=== PATIENT | female | born 1960 | race Caucasian/White ===

== ENCOUNTER 2024-08-28 11:36 | Observation (INO) ==
--- NOTE | 2024-08-28 12:24 | ED.ABDFE ---
HPI Time Seen Time Seen by Provider: 08/28/24 12:23 PCP Primary Care Physician: Palmira Murphy Complaint Chief Complaint:: pt states that she has been having epigastric pain for about two weeks along with N/V. pt is unable to tolerate any po fluids at the time because it comes right back up Self Treatment fo Chief Complaint: tums Source History Provided: Patient Mode of arrival Mode of Arrival: Ambulatory Timing Onset of Chief Complaint: 08/21/24 PMH PMH Past Medical History: Yes Past Medical History: Anxiety, Arthritis, Depression, Dyslipidemia and Hypertension Past Surgical History: Yes Surgical History: Hysterectomy, Ortho Surgery and Tonsillectomy Past Surgical History Comment: hip surgery Family History History of Family Medical Conditions: Yes Family Medical History: Hypertension Social History Does patient currently use any type of tobacco product: Yes Have you used tobacco products in the last 12 months: Yes Type of Tobacco Use: Cigarettes Alcohol Use: None Do you use any recreational Drugs:: No Lives With: Family Lives Where: Home Infectious screening Have you traveled outside the country in the last 6 months?: No Isolation: Standard PE Vital Signs Vitals: Vital Signs Temperature 98.2 F Pulse Rate 73 Pulse Rate 79 Pulse Rate 75 Pulse Rate 75 Pulse Rate 83 Pulse Rate 105 Respiratory Rate 24 Respiratory Rate 20 Respiratory Rate 21 Respiratory Rate 25 Respiratory Rate 31 Respiratory Rate 18 Respiratory Rate 18 Blood Pressure 118/72 Blood Pressure 146/71 O2 Sat by Pulse Oximetry 93 ROR Labs Reviewed 08/28/24 12:47 08/28/24 12:47 Laboratory: WBC 20.4 X10^3/uL (3.6-10.0) H 08/28/24 12:47 RBC 4.91 X10^6/uL (3.5-5.4) 08/28/24 12:47 Hgb 14.3 g/dL (12.0-16.0) 08/28/24 12:47 Hct 42.5 % (36.0-47.0) 08/28/24 12:47 MCV 86.6 fL (80.0-100.0) 08/28/24 12:47 MCH 29.1 pg (27.0-34.0) 08/28/24 12:47 MCHC 33.6 g/dL (33.0-35.0) 08/28/24 12:47 RDW 14.1 % (11.6-16.5) 08/28/24 12:47 Plt Count 398 X10^3/uL (150.0-450.0) 08/28/24 12:47 Plt Count Comment Adequate (ADEQUATE) 08/28/24 12:47 MPV 7.2 fL (7.4-11.0) L 08/28/24 12:47 Neut % (Auto) 93.1 % (42.0-75.0) H 08/28/24 12:47 Lymph % (Auto) 2.9 % (21.0-51.0) L 08/28/24 12:47 [place] % (Auto) 3.6 % (0.0-13.0) 08/28/24 12:47 Eos % (Auto) 0.0 % (0.9-2.9) L 08/28/24 12:47 Baso % (Auto) 0.4 % (0.2-1.0) 08/28/24 12:47 Neut # (Auto) 19.0 x10^3/uL (2.2-4.8) H 08/28/24 12:47 Lymph # (Auto) 0.6 X10^3/uL (1.3-2.9) L 08/28/24 12:47 [place] # (Auto) 0.7 x10^3/uL (0.3-0.8) 08/28/24 12:47 Eos # (Auto) 0.0 x10^3/uL (0.0-0.2) 08/28/24 12:47 Baso # (Auto) 0.1 X10^3/uL (0.0-0.1) 08/28/24 12:47 Absolute Nucleated RBC 0.0 /100WBC 08/28/24 12:47 Total Counted 100 08/28/24 12:47 Neutrophils % (Manual) 82 % (39-76) H 08/28/24 12:47 Band Neutrophils % 10 % (0-10) 08/28/24 12:47 Lymphocytes % (Manual) 6 % (13-43) L 08/28/24 12:47 Monocytes % (Manual) 2 % (4-9) L 08/28/24 12:47 Plt Morphology Comment Normal (NORMAL) 08/28/24 12:47 RBC Morphology Normal (NORMAL) 08/28/24 12:47 Sodium 133 mmol/L (136-145) L 08/28/24 12:47 Corrected Sodium 134 mmol/L (136-145) L 08/28/24 12:47 Potassium 4.4 mmol/L (3.5-5.1) 08/28/24 12:47 Chloride 96 mmol/L (98-107) L 08/28/24 12:47 Carbon Dioxide 28.0 mmol/L (21-32) 08/28/24 12:47 BUN 20 mg/dL (7-18) H 08/28/24 12:47 Creatinine 1.64 mg/dL (0.55-1.02) H 08/28/24 12:47 Est GFR (MDRD) Af Amer 40 (>60) L 08/28/24 12:47 Est GFR (MDRD) Non-Af 33 (>60) L 08/28/24 12:47 Glucose 123 mg/dL (65-99) H 08/28/24 12:47 Calcium 9.4 mg/dL (8.5-10.1) 08/28/24 12:47 Corrected Calcium 10.0 mg/dL (8.5-10.1) 08/28/24 12:47 Total Bilirubin 4.70 mg/dL (0.2-1.0) H 08/28/24 12:47 AST 391 Units/L (15-37) H 08/28/24 12:47 ALT 321 Units/L (12-78) H 08/28/24 12:47 Alkaline Phosphatase 234 Units/L (46-116) H 08/28/24 12:47 Total Protein 7.5 g/dL (6.4-8.2) 08/28/24 12:47 Albumin 3.3 g/dL (3.4-5.0) L 08/28/24 12:47 Globulin 4.2 g/dL (2.5-4.5) 08/28/24 12:47 Albumin/Globulin Ratio 0.8 Ratio (1.1-2.1) L 08/28/24 12:47 Amylase 444 Units/L (25-115) H 08/28/24 12:47 Lipase 673 Units/L (16-77) H 08/28/24 12:47 Specimen Type Clean catch urine 08/28/24 12:56 Urine Color [place] (YELLOW) 08/28/24 12:56 Urine Appearance Hazy (CLEAR) 08/28/24 12:56 Urine pH 6.0 (5.0 - 8.0) 08/28/24 12:56 Ur Specific [place] 1.015 (1.000-1.030) 08/28/24 12:56 Urine Protein 2+ (NEGATIVE) 08/28/24 12:56 Urine Glucose (UA) Negative (NEGATIVE) 08/28/24 12:56 Urine Ketones Negative (NEGATIVE) 08/28/24 12:56 Urine Blood 2+ (NEGATIVE) 08/28/24 12:56 Urine Nitrite Negative (NEGATIVE) 08/28/24 12:56 Urine Bilirubin 2+ (NEGATIVE) 08/28/24 12:56 Urine Urobilinogen 3+ (NORMAL) 08/28/24 12:56 Ur Leukocyte Esterase 1+ (NEGATIVE) 08/28/24 12:56 Urine RBC 3-5 /HPF (0-3) A 08/28/24 12:56 Urine WBC 0-2 /HPF (0-5) 08/28/24 12:56 Ur Squamous Epith Cells Rare /HPF (NEGATIVE) 08/28/24 12:56 Urine Bacteria Trace /HPF (NEGATIVE) 08/28/24 12:56 Urine Mucus Rare /HPF (NEGATIVE) 08/28/24 12:56 Ur Culture Indicated? No/not indicated 08/28/24 12:56 Opioid Opioid Risk Tool Total: 0 Total Score Risk Category: Low Risk Copyright: Zachary OLCKE predicting aberrant behaviors Discharge Plan Diagnosis Discharge Problem: Acute pancreatitis, Abdominal pain, Leucocytosis, Gall stone, Dehydration, Nausea & vomiting, Weakness Discharge Plan Patient Disposition: 09 ADMITTED INPATIENT Condition: Stable Orders to Discharge Patient Discharge Orders: Transfer (Routine); Ordered 08/28/24 Ordered By: MISTY SARMIENTO
[2024-08-28] MEDS: ZOFRAN INJ 4 MG VIAL IVP ONE (12:48)
[2024-08-28] MEDS: DEMEROL INJ IVP ONE (12:49)
[2024-08-28] MEDS: NS 1,000 ML IV 1,000 ML IV SCH ×2 (12:52→22:40)
[2024-08-28 12:53] LABS: BASOPHILS # (AUTO) 0.1 X10^3/uL (0.0-0.1); BASOPHILS % (AUTO) 0.4 % (0.2-1.0); HEMATOCRIT 42.5 % (36.0-47.0); HEMOGLOBIN 14.3 g/dL (12.0-16.0); LYMPHOCYTES # (AUTO) 0.6 X10^3/uL (1.3-2.9); LYMPHOCYTES % (AUTO) 2.9 % (21.0-51.0); MEAN CORPUSCULAR HEMOGLOBIN 29.1 pg (27.0-34.0); MEAN CORPUSCULAR HGB CONC 33.6 g/dL (33.0-35.0); MEAN CORPUSCULAR VOLUME 86.6 fL (80.0-100.0); MEAN PLATELET VOLUME 7.2 fL (7.4-11.0); MONOCYTES # (AUTO) 0.7 x10^3/uL (0.3-0.8); MONOCYTES % (AUTO) 3.6 % (0.0-13.0); NEUTROPHILS % (AUTO) 93.1 % (42.0-75.0); PLATELET COUNT 398 X10^3/uL (150.0-450.0); RED BLOOD COUNT 4.91 X10^6/uL (3.5-5.4); RED CELL DISTRIBUTION WIDTH 14.1 % (11.6-16.5); WHITE BLOOD COUNT 20.4 X10^3/uL (3.6-10.0)
--- NOTE | 2024-08-28 13:09 | CT ---
EXAMINATION:ABDOMEN/PELVIS W/O CONHISTORY:ABDOMINAL PAIN; .COMPARISON:None.TECHNIQUE:Unenhanced axial images were obtained through the abdomen and pelvis using renal stone protocol. Reformatted images were obtained as well. Lack of oral and IV contrast limits diagnostic sensitivityThe above CT scan was done with automated exposure control and the mA and kV was adjusted to obtain quality images according to patient size.FINDINGS:Lung bases: No acute findings. Dependent atelectasis. Elevated left hemidiaphragmLiver: No acute findings.GB/Biliary: Gallstones. No wall thickening or dilated ductSpleen: Normal size and densityPancreas: There is minimal stranding along the head of the pancreas which may represent early acute pancreatitis. Body and tail unremarkable. Correlate with amylase and lipase. No pseudocyst or dilated ductAdrenal Glands: No massKidneys: No obstructing stone, hydronephrosis or solid lesion. Punctate nonobstructing stones within the left kidneyAbdominal aorta: Tapers normally. Atherosclerotic calcificationRetroperitoneum: No pathologically enlarged lymph nodesBowel: No thickened or dilated loops of bowel, free fluid, free air, pneumatosis or abscess. Moderate stool. Simple diverticula. No CT evidence for diverticulitis, appendicitis or obstruction. Duodenal diverticulum in descending duodenumBladder/: Ureters and bladder unremarkable. There is streak artifact from right hip replacement. Hysterectomy. Multiple phleboliths in the pelvis.Osseous: Degenerative changes in the thoracolumbar spine. Multiple Schmorl's nodules. No acute findings or bony lesions.IMPRESSION:Stranding along the head of the pancreas may represent early acute pancreatitis. Correlate with amylase and lipaseSmall gallstones versus sludge in the gallbladder. No CT evidence for cholecystitis.No CT evidence for appendicitis, diverticulitis or obstructionTHIS IS AN ELECTRONICALLY VERIFIED FINAL REPORT08/28/2024 1:05 PM - Electronically signed by Jaden Juares MD
[2024-08-28 13:17] LABS: ALBUMIN 3.3 g/dL (3.4-5.0); CALCIUM 9.4 mg/dL (8.5-10.1); CREATININE 1.64 mg/dL (0.55-1.02); POTASSIUM 4.4 mmol/L (3.5-5.1)
[2024-08-28 13:24] LABS: BILIRUBIN,URINE 2+ (NEGATIVE); BLOOD/HEMOGLOBIN,URINE 2+ (NEGATIVE); GLUCOSE, URINE NEGATIVE (NEGATIVE); KETONES,URINE NEGATIVE (NEGATIVE); LEUKOCYTE ESTERASE ,URINE 1+ (NEGATIVE); NITRITES,URINE NEGATIVE (NEGATIVE); PROTEIN,URINE 2+ (NEGATIVE); UROBILINOGEN,URINE 3+ (NORMAL)
[2024-08-28 13:24] LABS: BAND NEUTROPHILS % 10 % (0-10)
[2024-08-28 13:25] LABS: PLATELET MORPHOLOGY COMMENT NORMAL (NORMAL)
[2024-08-28 13:47] LABS: APPEARANCE,URINE HAZY (CLEAR); BACTERIA,URINE TRACE /HPF (NEGATIVE); COLOR,URINE ORANGE (YELLOW); SQUAMOUS EPITHELIAL CELL,UR RARE /HPF (NEGATIVE)
[2024-08-28 13:56] LABS: TOTAL PROTEIN 7.5 g/dL (6.4-8.2)
[2024-08-28] MEDS: PROTONIX INJ 40 MG VIAL IVP ONE (15:44)
[2024-08-28] MEDS ORDERED: ZOFRAN INJ 4 MG VIAL IVP PRN (16:33)
[2024-08-28] MEDS ORDERED: ROCEPHIN VIAL 1 GRAM 1 G in NS 100 ML IV 100 ML IV SCH (17:00)
[2024-08-28] MEDS ORDERED: NS 1,000 ML IV 1,000 ML IV SCH (17:00)
[2024-08-28] MEDS ORDERED: DEMEROL INJ IVP PRN (17:34)
[2024-08-28 18:01] VITALS: BMI 1866.0
[2024-08-28] MEDS: ROCEPHIN VIAL 1 GRAM 1 G in NS 100 ML IV 100 ML IV SCH (19:09)
[2024-08-29 05:25] LABS: BASOPHILS % (AUTO) 0.4 % (0.2-1.0); EOSINOPHILS # (AUTO) 0.1 x10^3/uL (0.0-0.2); EOSINOPHILS % (AUTO) 0.6 % (0.9-2.9); HEMATOCRIT 37.2 % (36.0-47.0); HEMOGLOBIN 12.6 g/dL (12.0-16.0); LYMPHOCYTES % (AUTO) 10.5 % (21.0-51.0); MEAN CORPUSCULAR HEMOGLOBIN 28.8 pg (27.0-34.0); MEAN CORPUSCULAR HGB CONC 33.8 g/dL (33.0-35.0); MEAN CORPUSCULAR VOLUME 85.2 fL (80.0-100.0); MEAN PLATELET VOLUME 7.6 fL (7.4-11.0); MONOCYTES # (AUTO) 0.6 x10^3/uL (0.3-0.8); MONOCYTES % (AUTO) 6.8 % (0.0-13.0); NEUTROPHILS # (AUTO) 7.7 x10^3/uL (2.2-4.8); NEUTROPHILS % (AUTO) 81.7 % (42.0-75.0); PLATELET COUNT 322 X10^3/uL (150.0-450.0); RED BLOOD COUNT 4.36 X10^6/uL (3.5-5.4)
[2024-08-29 05:42] LABS: ALANINE AMINOTRANSFERASE 195 Units/L (12-78); ALBUMIN 2.6 g/dL (3.4-5.0); ALKALINE PHOSPHATASE 180 Units/L (46-116); AMYLASE 259 Units/L (25-115); ASPARTATE AMINO TRANSFERASE 154 Units/L (15-37); BLOOD UREA NITROGEN 23 mg/dL (7-18); CALCIUM 8.8 mg/dL (8.5-10.1); CARBON DIOXIDE 26.8 mmol/L (21-32); CHLORIDE 101 mmol/L (98-107); COR CA(FOR HYPOALB) 9.9 mg/dL (8.5-10.1); CREATININE 1.33 mg/dL (0.55-1.02); GLUCOSE 72 mg/dL (65-99); POTASSIUM 4.1 mmol/L (3.5-5.1); SODIUM 136 mmol/L (136-145); TOTAL PROTEIN 6.3 g/dL (6.4-8.2); eGFR NON BLACK RACES 42 (>60)
[2024-08-29 06:01] LABS: LIPASE 424 Units/L (16-77)
[2024-08-29 06:17] LABS: WHITE BLOOD COUNT 9.5 X10^3/uL (3.6-10.0)
[2024-08-29] MEDS: PROTONIX INJ 40 MG VIAL IVP SCH (08:47)
--- NOTE | 2024-08-29 10:30 | DR.H&P ---
H&P History & Physical for Day of: H&P Date: 08/29/24 Chief Complaint Chief Complaint: N/V and abdominal pain History of Present Illness History of Present Illness: Ms Terry is a 64y/o female with a PMH of HTN, HLD and anxiety presented with N/V and worsening abdominal pain for the past 2 weeks. She states she was initially getting better and then started feeling worse again so came to the ER. Work up showed elevated LFTs, lipase and amylase. WBC and Creatinine was also elevated. CTAP showed acute pancreatitis and gallsto madelyn vs sludge. Patient was started on fluids, pain control and ant-emetics. She was kept NPO and admitted for further management. This morning, she is feeling better. Denies use of ETOH. Labs/imaging reviewed: -WBC 9.5 Hgb 12.6 K 4.1 BUN/Cr 23/1.33 AST/ALT 154/195 AP 180 Lipase 424 -Blood Cx x 1: positive Plan: Order gallbladder U/S to assess further. Continue hydration, pain control and anti-emetics. NPO for now. Start clears after imaging. Continue protonix. Replace electrolytes as per protocol. Continue IV Rocephin, follow pending cultures. Monitor AM labs/imaging. Past Medical History Past Medical History: Anxiety, Arthritis, Depression, Dyslipidemia and Hypertension Additional Medical History: Hx TIA Past Surgical History Surgical History: Hysterectomy and Tonsillectomy Additional Surgical History: (R)KEN Family History Family Medical History: Hypertension Social History Does patient currently use any type of tobacco product: Yes Have you used tobacco products in the last 12 months: Yes Type of Tobacco Use: Cigarettes Alcohol Use: None Drug Use: None Allergies Allergies Allergy/AdvReac Type Severity Reaction Status Date / Time No Known Drug Allergies Allergy Unknown Verified 08/28/24 11:41 Labs 08/29/24 04:56 08/29/24 04:56 Labs: 08/28/24 18:28 Blood Blood Culture - Preliminary Laboratory WBC 9.5 X10^3/uL (3.6-10.0) D 08/29/24 04:56 RBC 4.36 X10^6/uL (3.5-5.4) 08/29/24 04:56 Hgb 12.6 g/dL (12.0-16.0) 08/29/24 04:56 Hct 37.2 % (36.0-47.0) 08/29/24 04:56 MCV 85.2 fL (80.0-100.0) 08/29/24 04:56 MCH 28.8 pg (27.0-34.0) 08/29/24 04:56 MCHC 33.8 g/dL (33.0-35.0) 08/29/24 04:56 RDW 14.0 % (11.6-16.5) 08/29/24 04:56 Plt Count 322 X10^3/uL (150.0-450.0) 08/29/24 04:56 Plt Count Comment Adequate (ADEQUATE) 08/28/24 12:47 MPV 7.6 fL (7.4-11.0) 08/29/24 04:56 Neut % (Auto) 81.7 % (42.0-75.0) H 08/29/24 04:56 Lymph % (Auto) 10.5 % (21.0-51.0) L 08/29/24 04:56 [place] % (Auto) 6.8 % (0.0-13.0) 08/29/24 04:56 Eos % (Auto) 0.6 % (0.9-2.9) L 08/29/24 04:56 Baso % (Auto) 0.4 % (0.2-1.0) 08/29/24 04:56 Neut # (Auto) 7.7 x10^3/uL (2.2-4.8) H 08/29/24 04:56 Lymph # (Auto) 1.0 X10^3/uL (1.3-2.9) L 08/29/24 04:56 [place] # (Auto) 0.6 x10^3/uL (0.3-0.8) 08/29/24 04:56 Eos # (Auto) 0.1 x10^3/uL (0.0-0.2) 08/29/24 04:56 Baso # (Auto) 0.0 X10^3/uL (0.0-0.1) 08/29/24 04:56 Absolute Nucleated RBC 0.0 /100WBC 08/29/24 04:56 Total Counted 100 08/28/24 12:47 Neutrophils % (Manual) 82 % (39-76) H 08/28/24 12:47 Band Neutrophils % 10 % (0-10) 08/28/24 12:47 Lymphocytes % (Manual) 6 % (13-43) L 08/28/24 12:47 Monocytes % (Manual) 2 % (4-9) L 08/28/24 12:47 Plt Morphology Comment Normal (NORMAL) 08/28/24 12:47 RBC Morphology Normal (NORMAL) 08/28/24 12:47 Sodium 136 mmol/L (136-145) 08/29/24 04:56 Corrected Sodium TNP 08/29/24 04:56 Potassium 4.1 mmol/L (3.5-5.1) 08/29/24 04:56 Chloride 101 mmol/L (98-107) 08/29/24 04:56 Carbon Dioxide 26.8 mmol/L (21-32) 08/29/24 04:56 BUN 23 mg/dL (7-18) H 08/29/24 04:56 Creatinine 1.33 mg/dL (0.55-1.02) H 08/29/24 04:56 Est GFR (MDRD) Af Amer 51 (>60) L 08/29/24 04:56 Est GFR (MDRD) Non-Af 42 (>60) L 08/29/24 04:56 Glucose 72 mg/dL (65-99) 08/29/24 04:56 Lactic Acid 0.8 mmol/L (0.4-2.0) 08/28/24 18:20 Calcium 8.8 mg/dL (8.5-10.1) 08/29/24 04:56 Corrected Calcium 9.9 mg/dL (8.5-10.1) 08/29/24 04:56 Total Bilirubin 2.70 mg/dL (0.2-1.0) H 08/29/24 04:56 AST 154 Units/L (15-37) H 08/29/24 04:56 ALT 195 Units/L (12-78) H 08/29/24 04:56 Alkaline Phosphatase 180 Units/L (46-116) H 08/29/24 04:56 Total Protein 6.3 g/dL (6.4-8.2) L 08/29/24 04:56 Albumin 2.6 g/dL (3.4-5.0) L 08/29/24 04:56 Globulin 3.7 g/dL (2.5-4.5) 08/29/24 04:56 Albumin/Globulin Ratio 0.7 Ratio (1.1-2.1) L 08/29/24 04:56 Amylase 259 Units/L (25-115) H 08/29/24 04:56 Lipase 424 Units/L (16-77) H 08/29/24 04:56 Specimen Type Clean catch urine 08/28/24 12:56 Urine Color [place] (YELLOW) 08/28/24 12:56 Urine Appearance Hazy (CLEAR) 08/28/24 12:56 Urine pH 6.0 (5.0 - 8.0) 08/28/24 12:56 Ur Specific [place] 1.015 (1.000-1.030) 08/28/24 12:56 Urine Protein 2+ (NEGATIVE) 08/28/24 12:56 Urine Glucose (UA) Negative (NEGATIVE) 08/28/24 12:56 Urine Ketones Negative (NEGATIVE) 08/28/24 12:56 Urine Blood 2+ (NEGATIVE) 08/28/24 12:56 Urine Nitrite Negative (NEGATIVE) 08/28/24 12:56 Urine Bilirubin 2+ (NEGATIVE) 08/28/24 12:56 Urine Urobilinogen 3+ (NORMAL) 08/28/24 12:56 Ur Leukocyte Esterase 1+ (NEGATIVE) 08/28/24 12:56 Urine RBC 3-5 /HPF (0-3) A 08/28/24 12:56 Urine WBC 0-2 /HPF (0-5) 08/28/24 12:56 Ur Squamous Epith Cells Rare /HPF (NEGATIVE) 08/28/24 12:56 Urine Bacteria Trace /HPF (NEGATIVE) 08/28/24 12:56 Urine Mucus Rare /HPF (NEGATIVE) 08/28/24 12:56 Ur Culture Indicated? No/not indicated 08/28/24 12:56 Review of Systems Constitutional: Weakness Eyes: No Symptoms Reported ENT: No Symptoms Reported Respiratory: No Symptoms Reported Cardiovascular: No Symptoms Reported Gastrointestinal: Nausea, Vomiting and Abdominal Pain Genitourinary: No Symptoms Reported Musculoskeletal: No Symptoms Reported Skin: No Symptoms Reported Neurological: No Symptoms Reported Physical Exam Vital Signs: Vital Signs Temperature 98.3 F Temperature 98.0 F Pulse Rate [Left Radial] 69 Pulse Rate [Left Radial] 79 Respiratory Rate 18 Respiratory Rate 18 Blood Pressure [Right Arm] 145/65 Blood Pressure [Right Arm] 129/66 O2 Sat by Pulse Oximetry 93 O2 Sat by Pulse Oximetry 93 Oriented: Normal Eyes: Normal Respiratory: Clear Throughout Cardiovascular: Normal Auscultation: Bowel Sounds: Normal Tenderness: Epigastric and Mild Skin: Normal Musculoskeletal: Normal Psychiatric: Normal Mood Description: Calm Affect: Normal Speech Pattern: Clear and Appropriate Assessment/Plan (1) Acute pancreatitis: Qualifiers: Acute pancreatitis complication: unspecified Pancreatitis type: other Qualified Code(s): K85.80 - Other acute pancreatitis without necrosis or infection Status: Acute (2) Gall stone: Qualifiers: Biliary obstruction: without biliary obstruction Cholecystitis presence: without cholecystitis Qualified Code(s): K80.20 - Calculus of gallb ladder without cholecystitis without obstruction Status: Acute (3) Dehydration: Status: Acute (4) Nausea & vomiting: Qualifiers: Vomiting type: unspecified Qualified Code(s): R11.2 - Nausea with vomiting, unspecified Status: Acute (5) Positive blood culture: Status: Acute (6) SAVANNA (acute kidney injury): Status: Acute Review H&P Reviewed: Yes Patient was examined?: Yes
--- NOTE | 2024-08-29 16:00 | US ---
EXAM: RIGHT UPPER QUADRANT ULTRASOUND HISTORY: pancreatitis, r/o gallstones; PANCREATITIS, R/O GALLSTONES COMPARISON: CT dated 08/28/2024. TECHNIQUE: Ultrasound of the right upper quadrant was performed. Color and spectral doppler imaging was utilized . FINDINGS: Pancreas: Poorly visualized due to shadowing overlying bowel gas. Liver/bile ducts: Heterogeneous hyperechoic parenchyma. No focal liver lesion identified. No intrahepatic biliary dil atation. Common bile duct measures 4 mm. Patent liver vasculature with normal hepatopetal portal ve nous flow. Gallbladder: Nondistended with dependent shadowing gallstones. Diffuse wall thickening. No pericholecystic fluid . Right kidney: No hydronephrosis or shadowing calculi. IMPRESSION: 1. Cholelithiasis with nondistended gallbladder and nonspecific gallbladder wall thickening. No valdemar cholecystic fluid. 2. No biliary dilatation. THIS IS AN ELECTRONICALLY VERIFIED FINAL REPORT 08/29/2024 3:54 PM - Electronically signed by Keith Lynch MD
[2024-08-30 05:57] LABS: BASOPHILS # (AUTO) 0.1 X10^3/uL (0.0-0.1); BASOPHILS % (AUTO) 0.8 % (0.2-1.0); EOSINOPHILS # (AUTO) 0.1 x10^3/uL (0.0-0.2); EOSINOPHILS % (AUTO) 1.4 % (0.9-2.9); HEMOGLOBIN 11.9 g/dL (12.0-16.0); LYMPHOCYTES # (AUTO) 1.5 X10^3/uL (1.3-2.9); LYMPHOCYTES % (AUTO) 21.2 % (21.0-51.0); MEAN CORPUSCULAR HEMOGLOBIN 28.9 pg (27.0-34.0); MEAN CORPUSCULAR HGB CONC 33.1 g/dL (33.0-35.0); MEAN CORPUSCULAR VOLUME 87.1 fL (80.0-100.0); MEAN PLATELET VOLUME 8.2 fL (7.4-11.0); MONOCYTES # (AUTO) 0.5 x10^3/uL (0.3-0.8); MONOCYTES % (AUTO) 7.3 % (0.0-13.0); NEUTROPHILS # (AUTO) 4.8 x10^3/uL (2.2-4.8); NEUTROPHILS % (AUTO) 69.3 % (42.0-75.0); PLATELET COUNT 322 X10^3/uL (150.0-450.0); RED BLOOD COUNT 4.13 X10^6/uL (3.5-5.4); RED CELL DISTRIBUTION WIDTH 14.3 % (11.6-16.5); WHITE BLOOD COUNT 6.9 X10^3/uL (3.6-10.0)
[2024-08-30 06:12] LABS: ALANINE AMINOTRANSFERASE 117 Units/L (12-78); ALBUMIN 2.4 g/dL (3.4-5.0); ALKALINE PHOSPHATASE 166 Units/L (46-116); ASPARTATE AMINO TRANSFERASE 62 Units/L (15-37); BLOOD UREA NITROGEN 14 mg/dL (7-18); CALCIUM 8.4 mg/dL (8.5-10.1); CARBON DIOXIDE 23.6 mmol/L (21-32); CHLORIDE 104 mmol/L (98-107); COR CA(FOR HYPOALB) 9.7 mg/dL (8.5-10.1); CREATININE 1.05 mg/dL (0.55-1.02); GLUCOSE 67 mg/dL (65-99); MAGNESIUM 1.9 mg/dL (2.0-2.9); POTASSIUM 4.1 mmol/L (3.5-5.1); SODIUM 136 mmol/L (136-145); TOTAL PROTEIN 6.4 g/dL (6.4-8.2); eGFR NON BLACK RACES 56 (>60)
[2024-08-30] MEDS ORDERED: CONSULT PHARMACY - POTASSIUM & MAGNESIUM XX SCH (08:00)
[2024-08-30] MEDS: MAG-OX TAB PO SCH (08:24)
--- NOTE | 2024-08-30 10:30 | PCM.PROG ---
Progress Note Progress Note for Day of Date of Exam: 08/30/24 Subjective Subjective: Patient seen at bedside, no acute events overnight. She states her abdominal pain is better, denies N/V. She has been tolerating clears. GB US showed cholelithiasis and non-specific gallbladder thickening. Blood Cx x 1 is positive. Labs/imaging reviewed: -WBC 6.9 Hgb 11.9 K 4.1 BUN/Cr 14/1.05 AST/ALT 62/117 AP 166 -Blood Cx x 1 positive -GB US reviewed Plan: Advance diet to full liquids. Continue pain control , anti-emetics prn. Continue IV Rocephin, follow final cultures. Consult Dr Allen. Replace electrolytes prn. Continue hydration. Resume home meds. Monitor AM labs/imaging. Past Medical Family Social History Allergies: Allergies No Known Drug Allergies Allergy (Unknown, Verified 08/28/24 11:41) Onset Date: 02/02/2014 Vital Signs and I&O's Vital Signs: Vital Signs Temperature 97.5 F Temperature 98.5 F Pulse Rate [Left Radial] 71 Pulse Rate [Left Radial] 63 Respiratory Rate 20 Respiratory Rate 16 Blood Pressure [Right Arm] 141/66 Blood Pressure [Right Arm] 129/60 O2 Sat by Pulse Oximetry 96 O2 Sat by Pulse Oximetry 94 Intake and Output: Intake & Output 08/27/24 08/28/24 08/29/24 08/30/24 23:59 23:59 23:59 23:59 Intake Total 792 / 792 3675 / 3675 1387 / 1387 Balance 792 / 792 3675 / 3675 1387 / 1387 Physical Exam Oriented: Normal Eyes: Normal Throat: Normal Respiratory: Normal Cardiovascular: Normal Auscultation: Bowel Sounds: Normal Palpation: Normal Tenderness: Normal Skin: Normal Musculoskeletal: Normal Psychiatric: Normal Mood Description: Calm Affect: Normal Speech Pattern: Clear and Appropriate Laboratory and Diagnostics 08/30/24 05:18 08/30/24 05:18 Labs: 08/28/24 18:28 Blood Blood Culture Gram Stain - Final 08/28/24 18:28 Blood Blood Culture - Preliminary 08/28/24 18:20 Blood Blood Culture - Preliminary Laboratory WBC 6.9 X10^3/uL (3.6-10.0) 08/30/24 05:18 RBC 4.13 X10^6/uL (3.5-5.4) 08/30/24 05:18 Hgb 11.9 g/dL (12.0-16.0) L 08/30/24 05:18 Hct 36.0 % (36.0-47.0) 08/30/24 05:18 MCV 87.1 fL (80.0-100.0) 08/30/24 05:18 MCH 28.9 pg (27.0-34.0) 08/30/24 05:18 MCHC 33.1 g/dL (33.0-35.0) 08/30/24 05:18 RDW 14.3 % (11.6-16.5) 08/30/24 05:18 Plt Count 322 X10^3/uL (150.0-450.0) 08/30/24 05:18 Plt Count Comment Adequate (ADEQUATE) 08/28/24 12:47 MPV 8.2 fL (7.4-11.0) 08/30/24 05:18 Neut % (Auto) 69.3 % (42.0-75.0) 08/30/24 05:18 Lymph % (Auto) 21.2 % (21.0-51.0) 08/30/24 05:18 [place] % (Auto) 7.3 % (0.0-13.0) 08/30/24 05:18 Eos % (Auto) 1.4 % (0.9-2.9) 08/30/24 05:18 Baso % (Auto) 0.8 % (0.2-1.0) 08/30/24 05:18 Neut # (Auto) 4.8 x10^3/uL (2.2-4.8) 08/30/24 05:18 Lymph # (Auto) 1.5 X10^3/uL (1.3-2.9) 08/30/24 05:18 [place] # (Auto) 0.5 x10^3/uL (0.3-0.8) 08/30/24 05:18 Eos # (Auto) 0.1 x10^3/uL (0.0-0.2) 08/30/24 05:18 Baso # (Auto) 0.1 X10^3/uL (0.0-0.1) 08/30/24 05:18 Absolute Nucleated RBC 0.0 /100WBC 08/30/24 05:18 Total Counted 100 08/28/24 12:47 Neutrophils % (Manual) 82 % (39-76) H 08/28/24 12:47 Band Neutrophils % 10 % (0-10) 08/28/24 12:47 Lymphocytes % (Manual) 6 % (13-43) L 08/28/24 12:47 Monocytes % (Manual) 2 % (4-9) L 08/28/24 12:47 Plt Morphology Comment Normal (NORMAL) 08/28/24 12:47 RBC Morphology Normal (NORMAL) 08/28/24 12:47 Sodium 136 mmol/L (136-145) 08/30/24 05:18 Corrected Sodium TNP 08/30/24 05:18 Potassium 4.1 mmol/L (3.5-5.1) 08/30/24 05:18 Chloride 104 mmol/L (98-107) 08/30/24 05:18 Carbon Dioxide 23.6 mmol/L (21-32) 08/30/24 05:18 BUN 14 mg/dL (7-18) 08/30/24 05:18 Creatinine 1.05 mg/dL (0.55-1.02) H 08/30/24 05:18 Est GFR (MDRD) Af Amer > 60 (>60) 08/30/24 05:18 Est GFR (MDRD) Non-Af 56 (>60) L 08/30/24 05:18 Glucose 67 mg/dL (65-99) 08/30/24 05:18 Lactic Acid 0.8 mmol/L (0.4-2.0) 08/28/24 18:20 Calcium 8.4 mg/dL (8.5-10.1) L 08/30/24 05:18 Corrected Calcium 9.7 mg/dL (8.5-10.1) 08/30/24 05:18 Magnesium 1.9 mg/dL (2.0-2.9) L 08/30/24 05:18 Total Bilirubin 0.80 mg/dL (0.2-1.0) 08/30/24 05:18 AST 62 Units/L (15-37) H 08/30/24 05:18 ALT 117 Units/L (12-78) H 08/30/24 05:18 Alkaline Phosphatase 166 Units/L (46-116) H 08/30/24 05:18 Total Protein 6.4 g/dL (6.4-8.2) 08/30/24 05:18 Albumin 2.4 g/dL (3.4-5.0) L 08/30/24 05:18 Globulin 4.0 g/dL (2.5-4.5) 08/30/24 05:18 Albumin/Globulin Ratio 0.6 Ratio (1.1-2.1) L 08/30/24 05:18 Amylase 259 Units/L (25-115) H 08/29/24 04:56 Lipase 424 Units/L (16-77) H 08/29/24 04:56 Specimen Type Clean catch urine 08/28/24 12:56 Urine Color [place] (YELLOW) 08/28/24 12:56 Urine Appearance Hazy (CLEAR) 08/28/24 12:56 Urine pH 6.0 (5.0 - 8.0) 08/28/24 12:56 Ur Specific [place] 1.015 (1.000-1.030) 08/28/24 12:56 Urine Protein 2+ (NEGATIVE) 08/28/24 12:56 Urine Glucose (UA) Negative (NEGATIVE) 08/28/24 12:56 Urine Ketones Negative (NEGATIVE) 08/28/24 12:56 Urine Blood 2+ (NEGATIVE) 08/28/24 12:56 Urine Nitrite Negative (NEGATIVE) 08/28/24 12:56 Urine Bilirubin 2+ (NEGATIVE) 08/28/24 12:56 Urine Urobilinogen 3+ (NORMAL) 08/28/24 12:56 Ur Leukocyte Esterase 1+ (NEGATIVE) 08/28/24 12:56 Urine RBC 3-5 /HPF (0-3) A 08/28/24 12:56 Urine WBC 0-2 /HPF (0-5) 08/28/24 12:56 Ur Squamous Epith Cells Rare /HPF (NEGATIVE) 08/28/24 12:56 Urine Bacteria Trace /HPF (NEGATIVE) 08/28/24 12:56 Urine Mucus Rare /HPF (NEGATIVE) 08/28/24 12:56 Ur Culture Indicated? No/not indicated 08/28/24 12:56 Plan (1) Acute pancreatitis: Status: Acute Qualifiers: Acute pancreatitis complication: unspecified Pancreatitis type: other Qualified Code(s): K85.80 - Other acute pancreatitis without necrosis or infection (2) Dehydration: Status: Acute (3) Nausea & vomiting: Status: Acute Qualifiers: Vomiting type: unspecified Qualified Code(s): R11.2 - Nausea with vomiting, unspecified (4) Positive blood culture: Status: Acute (5) SAVANNA (acute kidney injury): Status: Acute (6) Cholelithiases: Status: Acute Qualifiers: Cholelithiasis location: gallbladder Cholecystitis presence: without cholecystitis Biliary obstruction: without biliary obstruction Qualified Code(s): K80.20 - Calculus of gallbladder without cholecystitis without obstruction
[2024-08-30] MEDS: ZESTRIL TAB 10 MG PO SCH (10:41)
[2024-08-30] MEDS ORDERED: ASPIRIN EC 81 MG PO SCH (11:00)
--- NOTE | 2024-08-30 15:47 | EKG ---
Test Reason : preop Blood Pressure : */* mmHG Vent. Rate : 61 BPM Atrial Rate : 61 BPM P-R Int : 152 ms QRS Dur : 74 ms QT Int : 376 ms P-R-T Axes : 50 39 55 degrees QTc Int : 378 ms Normal sinus rhythm Normal ECG No previous ECGs available Confirmed by Job Luu MD ([id number]) on 08/30/2024 4:34:19 PM Referred By: Confirmed By: Job Luu MD
[2024-08-30] MEDS: ZOCOR TAB 20 MG PO SCH (21:02)
[2024-08-31 05:58] LABS: BASOPHILS % (AUTO) 0.7 % (0.2-1.0); EOSINOPHILS # (AUTO) 0.1 x10^3/uL (0.0-0.2); EOSINOPHILS % (AUTO) 2.2 % (0.9-2.9); HEMATOCRIT 35.9 % (36.0-47.0); HEMOGLOBIN 11.9 g/dL (12.0-16.0); LYMPHOCYTES # (AUTO) 1.5 X10^3/uL (1.3-2.9); LYMPHOCYTES % (AUTO) 24.3 % (21.0-51.0); MEAN CORPUSCULAR HGB CONC 33.2 g/dL (33.0-35.0); MEAN CORPUSCULAR VOLUME 87.3 fL (80.0-100.0); MONOCYTES # (AUTO) 0.5 x10^3/uL (0.3-0.8); MONOCYTES % (AUTO) 7.6 % (0.0-13.0); NEUTROPHILS # (AUTO) 3.9 x10^3/uL (2.2-4.8); NEUTROPHILS % (AUTO) 65.2 % (42.0-75.0); PLATELET COUNT 335 X10^3/uL (150.0-450.0); RED BLOOD COUNT 4.11 X10^6/uL (3.5-5.4); RED CELL DISTRIBUTION WIDTH 14.2 % (11.6-16.5)
[2024-08-31 06:13] LABS: ALANINE AMINOTRANSFERASE 86 Units/L (12-78); ALBUMIN 2.6 g/dL (3.4-5.0); ALKALINE PHOSPHATASE 159 Units/L (46-116); AMYLASE 87 Units/L (25-115); ASPARTATE AMINO TRANSFERASE 34 Units/L (15-37); BLOOD UREA NITROGEN 11 mg/dL (7-18); CALCIUM 8.5 mg/dL (8.5-10.1); CARBON DIOXIDE 25.4 mmol/L (21-32); CHLORIDE 105 mmol/L (98-107); COR CA(FOR HYPOALB) 9.6 mg/dL (8.5-10.1); GLUCOSE 83 mg/dL (65-99); POTASSIUM 3.9 mmol/L (3.5-5.1); SODIUM 138 mmol/L (136-145); TOTAL PROTEIN 6.8 g/dL (6.4-8.2); eGFR NON BLACK RACES > 60 (>60)
[2024-08-31 06:14] LABS: LIPASE 295 Units/L (16-77)
--- NOTE | 2024-08-31 07:48 | RAD ---
EXAMINATION:CHEST, 1 VIEWHISTORY:PRE OP-MAYA; HTN SX: HYST, ORTHO, HIP .COMPARISON STUDY:None.TECHNIQUE:Single portable AP view chestFINDINGS:Lungs are expanded. Nonspecific patchy bibasilar infiltrates. Borderline cardiac silhouette enlargement. Normal pulmonary vascular pattern. Bones are intactIMPRESSION:Nonspecific patchy bibasilar infiltrates. Borderline cardiac silhouette enlargement.THIS IS AN ELECTRONICALLY VERIFIED FINAL REPORT08/31/2024 7:44 AM - Electronically signed by Laxmi Cevallos MD
[2024-08-31] MEDS ORDERED: CONSULT PHARMACY - POTASSIUM & MAGNESIUM XX SCH (09:33)
[2024-08-31] MEDS: MAG-OX TAB PO SCH (10:43)
--- NOTE | 2024-08-31 11:00 | PCM.PROG ---
Progress Note Progress Note for Day of Date of Exam: 08/31/24 Subjective Subjective: Patient is a 64-year-old female admitted for acute pancreatitis and cholelithiasis. This morning, she is sitting up in recliner. No acute events overnight. She continues to have abdominal pain. GB US showed cholelithiasis and non-specific gallbladder thickening. Blood culture this morning positive for E. coli 1 out of 2. Labs/imaging reviewed: -WBC 6, hemoglobin 11.9, platelets 335, sodium 138, potassium 3.9, creatinine 0.90, glucose 83, lipase 295, AST 34, ALT 86, ALP 159. -Blood Cx x 1 positive for E coli. -GB US reviewed Plan: Patient will be n.p.o. after midnight for laparoscopic cholecystectomy. Continue pain control, anti-emetics prn. She does have E. coli bacteremia, continue IV Rocephin, General surgery- Dr Davenport following. Replace electrolytes prn. Continue hydration. Resume home meds. Monitor AM labs/imaging. Time spent for clinical assessment, reviewing labs/imaging, physical exam, decision making and documentation greater than 45 mins. Past Medical Family Social History Allergies: Allergies No Known Drug Allergies Allergy (Unknown, Verified 08/28/24 11:41) Onset Date: 02/02/2014 Review of Systems ROS changes noted: see HPI Vital Signs and I&O's Vital Signs: Vital Signs Temperature 98.1 F Pulse Rate [Left Radial] 65 Respiratory Rate 19 Blood Pressure [Right Arm] 146/69 O2 Sat by Pulse Oximetry 96 Intake and Output: Intake & Output 08/28/24 08/29/24 08/30/24 08/31/24 23:59 23:59 23:59 23:59 Intake Total 792 / 792 3675 / 3675 3088 / 3088 1356 / 1356 Balance 792 / 792 3675 / 3675 3088 / 3088 1356 / 1356 Physical Exam Oriented: Normal Eyes: Normal Throat: Normal Respiratory: Normal Cardiovascular: Normal Auscultation: Bowel Sounds: Normal Palpation: Normal Tenderness: Epigastric Skin: Normal Musculoskeletal: Normal Psychiatric: Normal Mood Description: Calm Affect: Normal Speech Pattern: Clear and Appropriate Laboratory and Diagnostics 08/31/24 05:30 08/31/24 05:30 Labs: 08/28/24 18:28 Blood Blood Culture Gram Stain - Final 08/28/24 18:28 Blood Blood Culture - Final Escherichia Coli 08/28/24 18:20 Blood Blood Culture - Preliminary Laboratory WBC 6.0 X10^3/uL (3.6-10.0) 08/31/24 05:30 RBC 4.11 X10^6/uL (3.5-5.4) 08/31/24 05:30 Hgb 11.9 g/dL (12.0-16.0) L 08/31/24 05:30 Hct 35.9 % (36.0-47.0) L 08/31/24 05:30 MCV 87.3 fL (80.0-100.0) 08/31/24 05:30 MCH 29.0 pg (27.0-34.0) 08/31/24 05:30 MCHC 33.2 g/dL (33.0-35.0) 08/31/24 05:30 RDW 14.2 % (11.6-16.5) 08/31/24 05:30 Plt Count 335 X10^3/uL (150.0-450.0) 08/31/24 05:30 Plt Count Comment Adequate (ADEQUATE) 08/28/24 12:47 MPV 8.0 fL (7.4-11.0) 08/31/24 05:30 Neut % (Auto) 65.2 % (42.0-75.0) 08/31/24 05:30 Lymph % (Auto) 24.3 % (21.0-51.0) 08/31/24 05:30 [place] % (Auto) 7.6 % (0.0-13.0) 08/31/24 05:30 Eos % (Auto) 2.2 % (0.9-2.9) 08/31/24 05:30 Baso % (Auto) 0.7 % (0.2-1.0) 08/31/24 05:30 Neut # (Auto) 3.9 x10^3/uL (2.2-4.8) 08/31/24 05:30 Lymph # (Auto) 1.5 X10^3/uL (1.3-2.9) 08/31/24 05:30 [place] # (Auto) 0.5 x10^3/uL (0.3-0.8) 08/31/24 05:30 Eos # (Auto) 0.1 x10^3/uL (0.0-0.2) 08/31/24 05:30 Baso # (Auto) 0.0 X10^3/uL (0.0-0.1) 08/31/24 05:30 Absolute Nucleated RBC 0.0 /100WBC 08/31/24 05:30 Total Counted 100 08/28/24 12:47 Neutrophils % (Manual) 82 % (39-76) H 08/28/24 12:47 Band Neutrophils % 10 % (0-10) 08/28/24 12:47 Lymphocytes % (Manual) 6 % (13-43) L 08/28/24 12:47 Monocytes % (Manual) 2 % (4-9) L 08/28/24 12:47 Plt Morphology Comment Normal (NORMAL) 08/28/24 12:47 RBC Morphology Normal (NORMAL) 08/28/24 12:47 Sodium 138 mmol/L (136-145) 08/31/24 05:30 Corrected Sodium TNP 08/31/24 05:30 Potassium 3.9 mmol/L (3.5-5.1) 08/31/24 05:30 Chloride 105 mmol/L (98-107) 08/31/24 05:30 Carbon Dioxide 25.4 mmol/L (21-32) 08/31/24 05:30 BUN 11 mg/dL (7-18) 08/31/24 05:30 Creatinine 0.90 mg/dL (0.55-1.02) 08/31/24 05:30 Est GFR (MDRD) Af Amer > 60 (>60) 08/31/24 05:30 Est GFR (MDRD) Non-Af > 60 (>60) 08/31/24 05:30 Glucose 83 mg/dL (65-99) 08/31/24 05:30 Lactic Acid 0.8 mmol/L (0.4-2.0) 08/28/24 18:20 Calcium 8.5 mg/dL (8.5-10.1) 08/31/24 05:30 Corrected Calcium 9.6 mg/dL (8.5-10.1) 08/31/24 05:30 Magnesium 1.9 mg/dL (2.0-2.9) L 08/30/24 05:18 Total Bilirubin 0.60 mg/dL (0.2-1.0) 08/31/24 05:30 AST 34 Units/L (15-37) 08/31/24 05:30 ALT 86 Units/L (12-78) H 08/31/24 05:30 Alkaline Phosphatase 159 Units/L (46-116) H 08/31/24 05:30 Total Protein 6.8 g/dL (6.4-8.2) 08/31/24 05:30 Albumin 2.6 g/dL (3.4-5.0) L 08/31/24 05:30 Globulin 4.2 g/dL (2.5-4.5) 08/31/24 05:30 Albumin/Globulin Ratio 0.6 Ratio (1.1-2.1) L 08/31/24 05:30 Amylase 87 Units/L (25-115) 08/31/24 05:30 Lipase 295 Units/L (16-77) H 08/31/24 05:30 Specimen Type Clean catch urine 08/28/24 12:56 Urine Color [place] (YELLOW) 08/28/24 12:56 Urine Appearance Hazy (CLEAR) 08/28/24 12:56 Urine pH 6.0 (5.0 - 8.0) 08/28/24 12:56 Ur Specific [place] 1.015 (1.000-1.030) 08/28/24 12:56 Urine Protein 2+ (NEGATIVE) 08/28/24 12:56 Urine Glucose (UA) Negative (NEGATIVE) 08/28/24 12:56 Urine Ketones Negative (NEGATIVE) 08/28/24 12:56 Urine Blood 2+ (NEGATIVE) 08/28/24 12:56 Urine Nitrite Negative (NEGATIVE) 08/28/24 12:56 Urine Bilirubin 2+ (NEGATIVE) 08/28/24 12:56 Urine Urobilinogen 3+ (NORMAL) 08/28/24 12:56 Ur Leukocyte Esterase 1+ (NEGATIVE) 08/28/24 12:56 Urine RBC 3-5 /HPF (0-3) A 08/28/24 12:56 Urine WBC 0-2 /HPF (0-5) 08/28/24 12:56 Ur Squamous Epith Cells Rare /HPF (NEGATIVE) 08/28/24 12:56 Urine Bacteria Trace /HPF (NEGATIVE) 08/28/24 12:56 Urine Mucus Rare /HPF (NEGATIVE) 08/28/24 12:56 Ur Culture Indicated? No/not indicated 08/28/24 12:56 Plan (1) Acute pancreatitis: Status: Acute Qualifiers: Acute pancreatitis complication: unspecified Pancreatitis type: other Qualified Code(s): K85.80 - Other acute pancreatitis without necrosis or infection (2) Dehydration: Status: Acute (3) Nausea & vomiting: Status: Acute Qualifiers: Vomiting type: unspecified Qualified Code(s): R11.2 - Nausea with vomiting, unspecified (4) Positive blood culture: Status: Acute (5) SAVANNA (acute kidney injury): Status: Acute (6) Cholelithiases: Status: Acute Qualifiers: Cholelithiasis location: gallbladder Cholecystitis presence: without cholecystitis Biliary obstruction: without biliary obstruction Qualified Code(s): K80.20 - Calculus of gallbladder without cholecystitis without obstruction (7) E coli bacteremia: Status: Acute
[2024-09-01] MEDS: HIBICLENS WASH EXT ONE (05:29)
[2024-09-01] MEDS: NOZIN NASAL SANITIZER TP ONE (05:30)
[2024-09-01 06:58] LABS: BASOPHILS % (AUTO) 0.7 % (0.2-1.0); EOSINOPHILS # (AUTO) 0.1 x10^3/uL (0.0-0.2); EOSINOPHILS % (AUTO) 2.7 % (0.9-2.9); HEMATOCRIT 34.9 % (36.0-47.0); HEMOGLOBIN 11.5 g/dL (12.0-16.0); LYMPHOCYTES # (AUTO) 1.4 X10^3/uL (1.3-2.9); LYMPHOCYTES % (AUTO) 25.3 % (21.0-51.0); MEAN CORPUSCULAR HEMOGLOBIN 28.8 pg (27.0-34.0); MEAN CORPUSCULAR HGB CONC 32.9 g/dL (33.0-35.0); MEAN CORPUSCULAR VOLUME 87.5 fL (80.0-100.0); MEAN PLATELET VOLUME 8.3 fL (7.4-11.0); MONOCYTES # (AUTO) 0.4 x10^3/uL (0.3-0.8); NEUTROPHILS # (AUTO) 3.6 x10^3/uL (2.2-4.8); NEUTROPHILS % (AUTO) 64.3 % (42.0-75.0); PLATELET COUNT 320 X10^3/uL (150.0-450.0); RED BLOOD COUNT 3.99 X10^6/uL (3.5-5.4); RED CELL DISTRIBUTION WIDTH 14.2 % (11.6-16.5); WHITE BLOOD COUNT 5.6 X10^3/uL (3.6-10.0)
[2024-09-01 07:17] LABS: ALANINE AMINOTRANSFERASE 62 Units/L (12-78); ALBUMIN 2.3 g/dL (3.4-5.0); ALKALINE PHOSPHATASE 139 Units/L (46-116); ASPARTATE AMINO TRANSFERASE 26 Units/L (15-37); BLOOD UREA NITROGEN 9 mg/dL (7-18); CALCIUM 8.5 mg/dL (8.5-10.1); CARBON DIOXIDE 23.4 mmol/L (21-32); CHLORIDE 107 mmol/L (98-107); COR CA(FOR HYPOALB) 9.9 mg/dL (8.5-10.1); CREATININE 0.84 mg/dL (0.55-1.02); GLUCOSE 81 mg/dL (65-99); POTASSIUM 4.2 mmol/L (3.5-5.1); SODIUM 139 mmol/L (136-145); TOTAL PROTEIN 6.3 g/dL (6.4-8.2); eGFR NON BLACK RACES > 60 (>60)
[2024-09-01] MEDS: LR 1,000 ML IV 1,000 ML IV ONE (09:40)
[2024-09-01] MEDS: ANCEF VIAL 1 GRAM ONE (09:48)
[2024-09-01] MEDS: NS 100 ML IV 100 ML ONE (09:48)
[2024-09-01] MEDS: REGLAN INJ 10 MG VIAL IVP PRN (09:59)
[2024-09-01] MEDS: PEPCID 20 MG VIAL IVP PRN (09:59)
[2024-09-01] MEDS: VERSED IVP PRN (09:59)
[2024-09-01] MEDS: ZOFRAN INJ 4 MG VIAL IVP PRN (09:59)
[2024-09-01] MEDS: ZOFRAN INJ 4 MG VIAL ONE (10:02)
[2024-09-01] MEDS: FENTANYL VIAL INJ 100 mcg ONE (10:02)
[2024-09-01] MEDS: DIPRIVAN VIAL 20 ML ONE (10:02)
[2024-09-01] MEDS: VERSED ONE (10:02)
[2024-09-01] MEDS: ANCEF VIAL 1 GRAM IV PRN (10:02)
[2024-09-01] MEDS ORDERED: SUPRANE IN ONE (10:02)
[2024-09-01] MEDS: PEPCID 20 MG VIAL ONE (10:02)
[2024-09-01] MEDS: LR 1,000 ML IV 0 ML IV PRN (10:02)
[2024-09-01] MEDS ORDERED: PRECEDEX INJ VIAL ONE (10:02)
[2024-09-01] MEDS: BRIDION ONE (10:02)
[2024-09-01] MEDS ORDERED: KETAMINE HCL ONE (10:02)
[2024-09-01] MEDS: ZEMURON 100 MG VIAL ONE (10:02)
[2024-09-01] MEDS: FENTANYL VIAL INJ 100 mcg IVP PRN (10:10)
[2024-09-01] MEDS: DIPRIVAN VIAL 150 ML IVP PRN (10:10)
[2024-09-01] MEDS: XYLOCAINE 2 % (PLAIN) INJ PRN (10:10)
[2024-09-01] MEDS: ZEMURON 100 MG VIAL IVP PRN (10:11)
[2024-09-01] MEDS: KETAMINE HCL IV PRN ×2 (10:16→10:30)
[2024-09-01] MEDS: PRECEDEX INJ VIAL IVP PRN ×2 (10:29→11:20)
[2024-09-01] MEDS: TORADOL 30 MG VIAL IVP PRN (11:00)
[2024-09-01] MEDS ORDERED: BENADRYL INJ 50 MG VIAL IVP PRN (11:05)
[2024-09-01] MEDS ORDERED: BARHEMSYS INJ IVP PRN (11:05)
[2024-09-01] MEDS ORDERED: ZOFRAN INJ 4 MG VIAL IVP PRN (11:05)
[2024-09-01] MEDS ORDERED: DILAUDID INJ IVP PRN (11:05)
[2024-09-01] MEDS ORDERED: REGLAN INJ 10 MG VIAL IVP PRN (11:05)
[2024-09-01] MEDS: TORADOL 30 MG VIAL ONE (11:06)
[2024-09-01] MEDS: BRIDION IVP PRN (11:17)
[2024-09-01] MEDS: BACTROBAN TOPICAL OINT ONE (11:20)
[2024-09-01] MEDS ORDERED: STERILE WATER IRRIGATION IR ONE (15:37)
[2024-09-01] MEDS: MORPHINE SULFATE INJ 2 MG INJ IVP PRN (17:30)
[2024-09-02 04:56] VITALS: TEMP 97.4
[2024-09-02 06:45] LABS: BASOPHILS # (AUTO) 0.1 X10^3/uL (0.0-0.1); BASOPHILS % (AUTO) 0.9 % (0.2-1.0); EOSINOPHILS # (AUTO) 0.2 x10^3/uL (0.0-0.2); EOSINOPHILS % (AUTO) 2.3 % (0.9-2.9); HEMATOCRIT 35.1 % (36.0-47.0); HEMOGLOBIN 11.7 g/dL (12.0-16.0); LYMPHOCYTES # (AUTO) 1.4 X10^3/uL (1.3-2.9); LYMPHOCYTES % (AUTO) 20.5 % (21.0-51.0); MEAN CORPUSCULAR HEMOGLOBIN 29.1 pg (27.0-34.0); MEAN CORPUSCULAR HGB CONC 33.2 g/dL (33.0-35.0); MEAN CORPUSCULAR VOLUME 87.7 fL (80.0-100.0); MEAN PLATELET VOLUME 8.4 fL (7.4-11.0); MONOCYTES # (AUTO) 0.4 x10^3/uL (0.3-0.8); MONOCYTES % (AUTO) 5.9 % (0.0-13.0); NEUTROPHILS # (AUTO) 4.7 x10^3/uL (2.2-4.8); NEUTROPHILS % (AUTO) 70.4 % (42.0-75.0); PLATELET COUNT 338 X10^3/uL (150.0-450.0); RED CELL DISTRIBUTION WIDTH 14.2 % (11.6-16.5); WHITE BLOOD COUNT 6.6 X10^3/uL (3.6-10.0)
[2024-09-02 07:07] LABS: ALANINE AMINOTRANSFERASE 48 Units/L (12-78); ALBUMIN 2.5 g/dL (3.4-5.0); ALKALINE PHOSPHATASE 137 Units/L (46-116); AMYLASE 56 Units/L (25-115); ASPARTATE AMINO TRANSFERASE 27 Units/L (15-37); BLOOD UREA NITROGEN 8 mg/dL (7-18); CALCIUM 8.7 mg/dL (8.5-10.1); CARBON DIOXIDE 27.3 mmol/L (21-32); CHLORIDE 105 mmol/L (98-107); COR CA(FOR HYPOALB) 9.9 mg/dL (8.5-10.1); CREATININE 1.03 mg/dL (0.55-1.02); GLUCOSE 88 mg/dL (65-99); LIPASE 100 Units/L (16-77); SODIUM 139 mmol/L (136-145); TOTAL PROTEIN 6.6 g/dL (6.4-8.2); eGFR NON BLACK RACES 57 (>60)
[2024-09-02] MEDS: LOVENOX INJ 40 MG SYR SC SCH (08:21)
--- NOTE | 2024-09-02 09:05 | DR.PROGNOT ---
HOSPITAL PROGRESS NOTE Progress Note for Day of: Progress Note Date: 09/02/24 Chief Complaint Chief Complaint: s/p lap nikita . doing very well . normal LFT ,Amylase , Lipase . afebrile . soft ,flat abdomen . to remove SHANE and D/C today . Past Medical Family Social History Allergies: Allergies No Known Drug Allergies Allergy (Unknown, Verified 08/28/24 11:41) Onset Date: 02/02/2014 Review Of Systems Changes in ROS: see HPI Vital Signs Vital Signs: Vital Signs Temperature 97.4 F Pulse Rate [Left Radial] 77 Respiratory Rate 16 Respiratory Rate 18 Respiratory Rate 16 Blood Pressure [Right Arm] 170/78 Blood Pressure [Right Arm] 190/88 Blood Pressure [Right Arm] 187/85 O2 Sat by Pulse Oximetry 93 Physical Exam Oriented: Normal Eyes: Normal Throat: Normal Respiratory: Normal Cardiovascular: Normal GI:Auscultation: Normal GI:Palpation: Normal GI: Tenderness: Epigastric Skin: Normal Musculoskeletal: Normal Psychiatric: Normal Mood Description: Calm Affect: Normal Speech Pattern: Clear and Appropriate Laboratory and Diagnostics 09/02/24 05:10 09/02/24 05:10 Labs: 08/28/24 18:28 Blood Blood Culture Gram Stain - Final 08/28/24 18:28 Blood Blood Culture - Final Escherichia Coli 08/28/24 18:20 Blood Blood Culture - Preliminary Laboratory WBC 6.6 X10^3/uL (3.6-10.0) 09/02/24 05:10 RBC 4.00 X10^6/uL (3.5-5.4) 09/02/24 05:10 Hgb 11.7 g/dL (12.0-16.0) L 09/02/24 05:10 Hct 35.1 % (36.0-47.0) L 09/02/24 05:10 MCV 87.7 fL (80.0-100.0) 09/02/24 05:10 MCH 29.1 pg (27.0-34.0) 09/02/24 05:10 MCHC 33.2 g/dL (33.0-35.0) 09/02/24 05:10 RDW 14.2 % (11.6-16.5) 09/02/24 05:10 Plt Count 338 X10^3/uL (150.0-450.0) 09/02/24 05:10 Plt Count Comment Adequate (ADEQUATE) 08/28/24 12:47 MPV 8.4 fL (7.4-11.0) 09/02/24 05:10 Neut % (Auto) 70.4 % (42.0-75.0) 09/02/24 05:10 Lymph % (Auto) 20.5 % (21.0-51.0) L 09/02/24 05:10 [place] % (Auto) 5.9 % (0.0-13.0) 09/02/24 05:10 Eos % (Auto) 2.3 % (0.9-2.9) 09/02/24 05:10 Baso % (Auto) 0.9 % (0.2-1.0) 09/02/24 05:10 Neut # (Auto) 4.7 x10^3/uL (2.2-4.8) 09/02/24 05:10 Lymph # (Auto) 1.4 X10^3/uL (1.3-2.9) 09/02/24 05:10 [place] # (Auto) 0.4 x10^3/uL (0.3-0.8) 09/02/24 05:10 Eos # (Auto) 0.2 x10^3/uL (0.0-0.2) 09/02/24 05:10 Baso # (Auto) 0.1 X10^3/uL (0.0-0.1) 09/02/24 05:10 Absolute Nucleated RBC 0.0 /100WBC 09/02/24 05:10 Total Counted 100 08/28/24 12:47 Neutrophils % (Manual) 82 % (39-76) H 08/28/24 12:47 Band Neutrophils % 10 % (0-10) 08/28/24 12:47 Lymphocytes % (Manual) 6 % (13-43) L 08/28/24 12:47 Monocytes % (Manual) 2 % (4-9) L 08/28/24 12:47 Plt Morphology Comment Normal (NORMAL) 08/28/24 12:47 RBC Morphology Normal (NORMAL) 08/28/24 12:47 Sodium 139 mmol/L (136-145) 09/02/24 05:10 Corrected Sodium TNP 09/02/24 05:10 Potassium 4.0 mmol/L (3.5-5.1) 09/02/24 05:10 Chloride 105 mmol/L (98-107) 09/02/24 05:10 Carbon Dioxide 27.3 mmol/L (21-32) 09/02/24 05:10 BUN 8 mg/dL (7-18) 09/02/24 05:10 Creatinine 1.03 mg/dL (0.55-1.02) H 09/02/24 05:10 Est GFR (MDRD) Af Amer > 60 (>60) 09/02/24 05:10 Est GFR (MDRD) Non-Af 57 (>60) L 09/02/24 05:10 Glucose 88 mg/dL (65-99) 09/02/24 05:10 Lactic Acid 0.8 mmol/L (0.4-2.0) 08/28/24 18:20 Calcium 8.7 mg/dL (8.5-10.1) 09/02/24 05:10 Corrected Calcium 9.9 mg/dL (8.5-10.1) 09/02/24 05:10 Magnesium 2.0 mg/dL (2.0-2.9) 09/01/24 05:51 Total Bilirubin 0.50 mg/dL (0.2-1.0) 09/02/24 05:10 AST 27 Units/L (15-37) 09/02/24 05:10 ALT 48 Units/L (12-78) 09/02/24 05:10 Alkaline Phosphatase 137 Units/L (46-116) H 09/02/24 05:10 Total Protein 6.6 g/dL (6.4-8.2) 09/02/24 05:10 Albumin 2.5 g/dL (3.4-5.0) L 09/02/24 05:10 Globulin 4.1 g/dL (2.5-4.5) 09/02/24 05:10 Albumin/Globulin Ratio 0.6 Ratio (1.1-2.1) L 09/02/24 05:10 Amylase 56 Units/L (25-115) 09/02/24 05:10 Lipase 100 Units/L (16-77) H 09/02/24 05:10 Specimen Type Clean catch urine 08/28/24 12:56 Urine Color [place] (YELLOW) 08/28/24 12:56 Urine Appearance Hazy (CLEAR) 08/28/24 12:56 Urine pH 6.0 (5.0 - 8.0) 08/28/24 12:56 Ur Specific [place] 1.015 (1.000-1.030) 08/28/24 12:56 Urine Protein 2+ (NEGATIVE) 08/28/24 12:56 Urine Glucose (UA) Negative (NEGATIVE) 08/28/24 12:56 Urine Ketones Negative (NEGATIVE) 08/28/24 12:56 Urine Blood 2+ (NEGATIVE) 08/28/24 12:56 Urine Nitrite Negative (NEGATIVE) 08/28/24 12:56 Urine Bilirubin 2+ (NEGATIVE) 08/28/24 12:56 Urine Urobilinogen 3+ (NORMAL) 08/28/24 12:56 Ur Leukocyte Esterase 1+ (NEGATIVE) 08/28/24 12:56 Urine RBC 3-5 /HPF (0-3) A 08/28/24 12:56 Urine WBC 0-2 /HPF (0-5) 08/28/24 12:56 Ur Squamous Epith Cells Rare /HPF (NEGATIVE) 08/28/24 12:56 Urine Bacteria Trace /HPF (NEGATIVE) 08/28/24 12:56 Urine Mucus Rare /HPF (NEGATIVE) 08/28/24 12:56 Ur Culture Indicated? No/not indicated 08/28/24 12:56 Assessment and Plan 1: PO lap nikita . to follow in 10 days 2: gallstone pancreatitis . to follow as OP . Problem Patient Problems: Patient Problems Acute pancreatitis (Acute) K85.90 Abdominal pain (Acute) R10.9 Leucocytosis (Acute) D72.829 Gall stone (Acute) K80.20 Dehydration (Acute) E86.0 Nausea & vomiting (Acute) R11.2 Weakness (Acute) R53.1
--- NOTE | 2024-09-02 10:24 | PCM.PROG ---
Progress Note Progress Note for Day of Date of Exam: 09/02/24 Subjective Subjective: Patient is a 64-year-old female admitted for acute pancreatitis and cholelithiasis. This morning, she is resting in bed comfortably. No acute events overnight. She is scheduled for lap nikita today. GB US showed cholelithiasis and non-specific gallbladder thickening. Blood culture this morn ing positive for E. coli 1 out of 2. Labs/imaging reviewed: -WBC 5.6, hemoglobin 11.5, platelets 320, sodium 139, potassium 4.2, creatinine 0.84, glucose 81, AST 26, ALT 62, ALP 139. -Blood Cx x 1 positive for E coli. -GB US reviewed Plan: Patient is n.p.o. for laparoscopic cholecystectomy. Continue pain control, anti-emetics prn. She does have E. coli bacteremia, repeat blood cultures, continue IV Rocephin, General surgery- Dr Davenport following. Replace electrolytes prn. Continue hydration. Monitor AM labs/imaging. Time spent for clinical assessment, reviewing labs/imaging, physical exam, decision making and documentation greater than 45 mins. Past Medical Family Social History Allergies: Allergies No Known Drug Allergies Allergy (Unknown, Verified 08/28/24 11:41) Onset Date: 02/02/2014 Review of Systems ROS changes noted: see HPI Vital Signs and I&O's Vital Signs: Vital Signs Temperature 97.4 F Pulse Rate [Left Radial] 77 Respiratory Rate 16 Respiratory Rate 18 Respiratory Rate 16 Blood Pressure [Right Arm] 170/78 Blood Pressure [Right Arm] 190/88 Blood Pressure [Right Arm] 187/85 O2 Sat by Pulse Oximetry 93 Intake and Output: Intake & Output 08/30/24 08/31/24 09/01/24 09/02/24 23:59 23:59 23:59 23:59 Intake Total 3088 / 3088 1955 7042 / 7042 1198 / 1198 Output Total 1327 / 1327 18 / 18 Balance 3088 / 3088 1955 5715 / 5715 1180 / 1180 Physical Exam Oriented: Normal Eyes: Normal Throat: Normal Respiratory: Normal Cardiovascular: Normal Auscultation: Bowel Sounds: Normal Palpation: Normal Tenderness: Epigastric Skin: Normal Musculoskeletal: Normal Psychiatric: Normal Mood Description: Calm Affect: Normal Speech Pattern: Clear and Appropriate Laboratory and Diagnostics 09/02/24 05:10 09/02/24 05:10 Labs: 08/28/24 18:28 Blood Blood Culture Gram Stain - Final 08/28/24 18:28 Blood Blood Culture - Final Escherichia Coli 08/28/24 18:20 Blood Blood Culture - Preliminary Laboratory WBC 6.6 X10^3/uL (3.6-10.0) 09/02/24 05:10 RBC 4.00 X10^6/uL (3.5-5.4) 09/02/24 05:10 Hgb 11.7 g/dL (12.0-16.0) L 09/02/24 05:10 Hct 35.1 % (36.0-47.0) L 09/02/24 05:10 MCV 87.7 fL (80.0-100.0) 09/02/24 05:10 MCH 29.1 pg (27.0-34.0) 09/02/24 05:10 MCHC 33.2 g/dL (33.0-35.0) 09/02/24 05:10 RDW 14.2 % (11.6-16.5) 09/02/24 05:10 Plt Count 338 X10^3/uL (150.0-450.0) 09/02/24 05:10 Plt Count Comment Adequate (ADEQUATE) 08/28/24 12:47 MPV 8.4 fL (7.4-11.0) 09/02/24 05:10 Neut % (Auto) 70.4 % (42.0-75.0) 09/02/24 05:10 Lymph % (Auto) 20.5 % (21.0-51.0) L 09/02/24 05:10 [place] % (Auto) 5.9 % (0.0-13.0) 09/02/24 05:10 Eos % (Auto) 2.3 % (0.9-2.9) 09/02/24 05:10 Baso % (Auto) 0.9 % (0.2-1.0) 09/02/24 05:10 Neut # (Auto) 4.7 x10^3/uL (2.2-4.8) 09/02/24 05:10 Lymph # (Auto) 1.4 X10^3/uL (1.3-2.9) 09/02/24 05:10 [place] # (Auto) 0.4 x10^3/uL (0.3-0.8) 09/02/24 05:10 Eos # (Auto) 0.2 x10^3/uL (0.0-0.2) 09/02/24 05:10 Baso # (Auto) 0.1 X10^3/uL (0.0-0.1) 09/02/24 05:10 Absolute Nucleated RBC 0.0 /100WBC 09/02/24 05:10 Total Counted 100 08/28/24 12:47 Neutrophils % (Manual) 82 % (39-76) H 08/28/24 12:47 Band Neutrophils % 10 % (0-10) 08/28/24 12:47 Lymphocytes % (Manual) 6 % (13-43) L 08/28/24 12:47 Monocytes % (Manual) 2 % (4-9) L 08/28/24 12:47 Plt Morphology Comment Normal (NORMAL) 08/28/24 12:47 RBC Morphology Normal (NORMAL) 08/28/24 12:47 Sodium 139 mmol/L (136-145) 09/02/24 05:10 Corrected Sodium TNP 09/02/24 05:10 Potassium 4.0 mmol/L (3.5-5.1) 09/02/24 05:10 Chloride 105 mmol/L (98-107) 09/02/24 05:10 Carbon Dioxide 27.3 mmol/L (21-32) 09/02/24 05:10 BUN 8 mg/dL (7-18) 09/02/24 05:10 Creatinine 1.03 mg/dL (0.55-1.02) H 09/02/24 05:10 Est GFR (MDRD) Af Amer > 60 (>60) 09/02/24 05:10 Est GFR (MDRD) Non-Af 57 (>60) L 09/02/24 05:10 Glucose 88 mg/dL (65-99) 09/02/24 05:10 Lactic Acid 0.8 mmol/L (0.4-2.0) 08/28/24 18:20 Calcium 8.7 mg/dL (8.5-10.1) 09/02/24 05:10 Corrected Calcium 9.9 mg/dL (8.5-10.1) 09/02/24 05:10 Magnesium 2.0 mg/dL (2.0-2.9) 09/01/24 05:51 Total Bilirubin 0.50 mg/dL (0.2-1.0) 09/02/24 05:10 AST 27 Units/L (15-37) 09/02/24 05:10 ALT 48 Units/L (12-78) 09/02/24 05:10 Alkaline Phosphatase 137 Units/L (46-116) H 09/02/24 05:10 Total Protein 6.6 g/dL (6.4-8.2) 09/02/24 05:10 Albumin 2.5 g/dL (3.4-5.0) L 09/02/24 05:10 Globulin 4.1 g/dL (2.5-4.5) 09/02/24 05:10 Albumin/Globulin Ratio 0.6 Ratio (1.1-2.1) L 09/02/24 05:10 Amylase 56 Units/L (25-115) 09/02/24 05:10 Lipase 100 Units/L (16-77) H 09/02/24 05:10 Specimen Type Clean catch urine 08/28/24 12:56 Urine Color [place] (YELLOW) 08/28/24 12:56 Urine Appearance Hazy (CLEAR) 08/28/24 12:56 Urine pH 6.0 (5.0 - 8.0) 08/28/24 12:56 Ur Specific [place] 1.015 (1.000-1.030) 08/28/24 12:56 Urine Protein 2+ (NEGATIVE) 08/28/24 12:56 Urine Glucose (UA) Negative (NEGATIVE) 08/28/24 12:56 Urine Ketones Negative (NEGATIVE) 08/28/24 12:56 Urine Blood 2+ (NEGATIVE) 08/28/24 12:56 Urine Nitrite Negative (NEGATIVE) 08/28/24 12:56 Urine Bilirubin 2+ (NEGATIVE) 08/28/24 12:56 Urine Urobilinogen 3+ (NORMAL) 08/28/24 12:56 Ur Leukocyte Esterase 1+ (NEGATIVE) 08/28/24 12:56 Urine RBC 3-5 /HPF (0-3) A 08/28/24 12:56 Urine WBC 0-2 /HPF (0-5) 08/28/24 12:56 Ur Squamous Epith Cells Rare /HPF (NEGATIVE) 08/28/24 12:56 Urine Bacteria Trace /HPF (NEGATIVE) 08/28/24 12:56 Urine Mucus Rare /HPF (NEGATIVE) 08/28/24 12:56 Ur Culture Indicated? No/not indicated 08/28/24 12:56 Plan (1) Acute pancreatitis: Status: Acute Qualifiers: Acute pancreatitis complication: unspecified Pancreatitis type: other Qualified Code(s): K85.80 - Other acute pancreatitis without necrosis or infection (2) Dehydration: Status: Acute (3) Nausea & vomiting: Status: Acute Qualifiers: Vomiting type: unspecified Qualified Code(s): R11.2 - Nausea with vomiting, unspecified (4) Positive blood culture: Status: Acute (5) SAVANNA (acute kidney injury): Status: Acute (6) Cholelithiases: Status: Acute Qualifiers: Cholelithiasis location: gallbladder Cholecystitis presence: without cholecystitis Biliary obstruction: without biliary obstruction Qualified Code(s): K80.20 - Calculus of gallbladder without cholecystitis without obstruction (7) E coli bacteremia: Status: Acute
[2024-09-02 10:41] VITALS: BP 168/74; PULSE 72; RESP 18; O2SAT 91
--- NOTE | 2024-09-05 11:08 | W.DIS.FURT ---
Summary of Discharge Discharge Summary of Date Date of Exam: 09/02/24 Admission Date Date of Admission: 08/28/24 Admission Diagnosis Patient Problems (Updated 08/31/24 @ 10:55 by Job Hameed MD) Acute pancreatitis (Acute) K85.90 Abdominal pain (Acute) R10.9 Leucocytosis (Acute) D72.829 Gall stone (Acute) K80.20 Dehydration (Acute) E86.0 Nausea & vomiting (Acute) R11.2 Weakness (Acute) R53.1 Hospital Course: Ms Terry is a 64y/o female with a PMH of HTN, HLD and anxiety presented with N/V and worsening abdominal pain for the past 2 weeks. She states she was initially getting better and then started feeling worse again so came to the ER. Work up showed elevated LFTs, lipase and amylase. WBC and Creatinine was also elevated. CTAP showed acute pancreatitis and gallstones vs sludge. Patient was started on fluids, pain control and ant-emetics. She was kept NPO and admitted for further management. This morning, she is feeling better. Denies use of ETOH. Her labs were monitored daily and electrolytes replaced as needed. GB US showed cholelithiasis with nondistended gallbladder and nonspecific thickening. Dr Allen was consulted and recommended cholecystectomy. Patient's one set of initial bl ood cx was positive for E.coli. She was on IV antibiotics. She had lap cholecystectomy with no complications. She was doing well, tolerating PO intake. Her pain was well-controlled. Repeat blood Cx were negative. She had elevated BP, lisinopril was increased to BID. She was told to monitor BP daily and discuss with PCP. She was stable to be discharged home on PO abx. She will f/u with PCP and Dr Allen as scheduled. Vital Signs: Vital Signs (72 hours) 08/30/24 15:15 08/30/24 15:30 08/30/24 15:45 Temperature 98.0 F 98.0 F 98.2 F Pulse Rate Pulse Rate [Left Radial] 114 H 97 H 99 H Respiratory Rate 15 16 16 Blood Pressure Blood Pressure [Left Arm] 95/52 89/47 89/48 Blood Pressure [Right Arm] O2 Sat by Pulse Oximetry 98 96 95 Oxygen Delivery Method 08/30/24 16:15 08/30/24 20:00 08/30/24 19:00 Temperature 97.9 F 98.2 F Pulse Rate Pulse Rate [Left Radial] 85 64 Respiratory Rate 18 18 Blood Pressure Blood Pressure [Left Arm] 88/48 Blood Pressure [Right Arm] 132/66 O2 Sat by Pulse Oximetry 97 96 Oxygen Delivery Method Room Air Room Air 08/31/24 00:00 08/31/24 00:06 08/31/24 04:00 Temperature 97.9 F 98.1 F Pulse Rate Pulse Rate [Left Radial] 72 65 Respiratory Rate 19 19 Blood Pressure Blood Pressure [Left Arm] Blood Pressure [Right Arm] 191/86 176/88 146/69 O2 Sat by Pulse Oximetry 97 96 Oxygen Delivery Method Room Air Room Air 08/31/24 07:00 08/31/24 08:00 08/31/24 12:00 Temperature 97.6 F 97.3 F L Pulse Rate Pulse Rate [Left Radial] 65 60 Respiratory Rate 19 20 Blood Pressure Blood Pressure [Left Arm] Blood Pressure [Right Arm] 157/67 155/75 O2 Sat by Pulse Oximetry 98 96 Oxygen Delivery Method Room Air Room Air Room Air 08/31/24 16:00 08/31/24 19:00 08/31/24 20:00 Temperature 97.5 F L 97.9 F Pulse Rate Pulse Rate [Left Radial] 67 68 Respiratory Rate 19 19 Blood Pressure Blood Pressure [Left Arm] Blood Pressure [Right Arm] 141/73 183/87 O2 Sat by Pulse Oximetry 98 98 Oxygen Delivery Method Room Air Room Air Room Air 09/01/24 00:00 09/01/24 00:02 09/01/24 04:00 Temperature 98.1 F 97.9 F Pulse Rate Pulse Rate [Left Radial] 64 62 Respiratory Rate 19 19 Blood Pressure Blood Pressure [Left Arm] Blood Pressure [Right Arm] 184/76 170/72 179/69 O2 Sat by Pulse Oximetry 93 L 95 Oxygen Delivery Method Room Air Room Air 09/01/24 07:00 09/01/24 09:49 09/01/24 11:29 Temperature 97 F L 97 F L Pulse Rate 61 55 L Pulse Rate [Left Radial] Respiratory Rate 18 16 Blood Pressure 183/76 127/60 Blood Pressure [Left Arm] Blood Pressure [Right Arm] O2 Sat by Pulse Oximetry 96 98 Oxygen Delivery Method Room Air Room Air Aerosol Face Tent 09/01/24 11:34 09/01/24 11:06 09/01/24 11:39 Temperature Pulse Rate 53 L 51 L Pulse Rate [Left Radial] Respiratory Rate 16 18 18 Blood Pressure 112/57 112/56 Blood Pressure [Left Arm] Blood Pressure [Right Arm] O2 Sat by Pulse Oximetry 99 98 Oxygen Delivery Method Aerosol Face Tent Aerosol Face Tent 09/01/24 11:44 09/01/24 11:49 09/01/24 11:54 Temperature Pulse Rate 57 L 56 L 56 L Pulse Rate [Left Radial] Respiratory Rate 18 18 18 Blood Pressure 134/60 133/63 132/64 Blood Pressure [Left Arm] Blood Pressure [Right Arm] O2 Sat by Pulse Oximetry 98 98 96 Oxygen Delivery Method Nasal Cannula Nasal Cannula Nasal Cannula 09/01/24 11:59 09/01/24 08:00 09/01/24 09:00 Temperature 97.8 F 98.2 F Pulse Rate 54 L Pulse Rate [Left Radial] 59 L Respiratory Rate 18 20 Blood Pressure 141/66 Blood Pressure [Left Arm] Blood Pressure [Right Arm] 186/72 174/72 O2 Sat by Pulse Oximetry 96 96 Oxygen Delivery Method Nasal Cannula Room Air 09/01/24 12:10 09/01/24 12:10 09/01/24 12:25 Temperature 97.6 F 97.6 F 97.6 F Pulse Rate Pulse Rate [Left Radial] 55 L 55 L 52 L Respiratory Rate 18 18 18 Blood Pressure Blood Pressure [Left Arm] 154/70 155/72 Blood Pressure [Right Arm] 164/70 O2 Sat by Pulse Oximetry 95 95 96 Oxygen Delivery Method Room Air 09/01/24 12:40 09/01/24 12:55 09/01/24 13:10 Temperature 97.6 F 97.8 F 97.4 F L Pulse Rate Pulse Rate [Left Radial] 54 L 58 L 62 Respiratory Rate 20 21 20 Blood Pressure Blood Pressure [Left Arm] 138/64 178/76 171/79 Blood Pressure [Right Arm] O2 Sat by Pulse Oximetry 96 96 96 Oxygen Delivery Method 09/01/24 14:10 09/01/24 15:10 09/01/24 16:10 Temperature 97.6 F 97.8 F 98.0 F Pulse Rate Pulse Rate [Left Radial] 66 63 68 Respiratory Rate 19 18 22 Blood Pressure Blood Pressure [Left Arm] 174/79 172/79 179/62 Blood Pressure [Right Arm] O2 Sat by Pulse Oximetry 94 L 91 L 96 Oxygen Delivery Method 09/01/24 17:10 09/01/24 16:10 09/01/24 17:30 Temperature 97.8 F 98.0 F Pulse Rate Pulse Rate [Left Radial] 71 68 Respiratory Rate 21 22 22 Blood Pressure Blood Pressure [Left Arm] 176/68 Blood Pressure [Right Arm] 179/62 O2 Sat by Pulse Oximetry 96 96 Oxygen Delivery Method Room Air 09/01/24 18:00 09/01/24 20:00 09/01/24 23:37 Temperature 98.1 F Pulse Rate Pulse Rate [Left Radial] 64 Respiratory Rate 20 16 22 Blood Pressure Blood Pressure [Left Arm] Blood Pressure [Right Arm] 188/77 O2 Sat by Pulse Oximetry 92 L Oxygen Delivery Method Room Air 09/02/24 05:26 09/01/24 19:00 09/01/24 21:30 Temperature Pulse Rate Pulse Rate [Left Radial] Respiratory Rate 18 Blood Pressure Blood Pressure [Left Arm] Blood Pressure [Right Arm] 168/74 O2 Sat by Pulse Oximetry Oxygen Delivery Method Room Air 09/02/24 00:00 09/02/24 00:07 09/02/24 04:00 Temperature 98.2 F 97.4 F L Pulse Rate Pulse Rate [Left Radial] 76 77 Respiratory Rate 16 20 16 Blood Pressure Blood Pressure [Left Arm] Blood Pressure [Right Arm] 185/82 187/85 O2 Sat by Pulse Oximetry 94 L 93 L Oxygen Delivery Method Room Air Room Air 09/02/24 05:06 09/02/24 05:45 09/02/24 05:56 Temperature Pulse Rate Pulse Rate [Left Radial] Respiratory Rate 16 Blood Pressure Blood Pressure [Left Arm] Blood Pressure [Right Arm] 190/88 170/78 O2 Sat by Pulse Oximetry Oxygen Delivery Method 09/02/24 07:00 09/02/24 08:00 09/02/24 09:00 Temperature 97.4 F L Pulse Rate Pulse Rate [Left Radial] 72 Respiratory Rate 18 Blood Pressure Blood Pressure [Left Arm] Blood Pressure [Right Arm] 180/73 168/74 O2 Sat by Pulse Oximetry 91 L Oxygen Delivery Method Room Air Room Air Labs: Laboratory Last Values WBC 6.6 X10^3/uL (3.6-10.0) 09/02/24 05:10 RBC 4.00 X10^6/uL (3.5-5.4) 09/02/24 05:10 Hgb 11.7 g/dL (12.0-16.0) L 09/02/24 05:10 Hct 35.1 % (36.0-47.0) L 09/02/24 05:10 MCV 87.7 fL (80.0-100.0) 09/02/24 05:10 MCH 29.1 pg (27.0-34.0) 09/02/24 05:10 MCHC 33.2 g/dL (33.0-35.0) 09/02/24 05:10 RDW 14.2 % (11.6-16.5) 09/02/24 05:10 Plt Count 338 X10^3/uL (150.0-450.0) 09/02/24 05:10 Plt Count Comment Adequate (ADEQUATE) 08/28/24 12:47 MPV 8.4 fL (7.4-11.0) 09/02/24 05:10 Neut % (Auto) 70.4 % (42.0-75.0) 09/02/24 05:10 Lymph % (Auto) 20.5 % (21.0-51.0) L 09/02/24 05:10 [place] % (Auto) 5.9 % (0.0-13.0) 09/02/24 05:10 Eos % (Auto) 2.3 % (0.9-2.9) 09/02/24 05:10 Baso % (Auto) 0.9 % (0.2-1.0) 09/02/24 05:10 Neut # (Auto) 4.7 x10^3/uL (2.2-4.8) 09/02/24 05:10 Lymph # (Auto) 1.4 X10^3/uL (1.3-2.9) 09/02/24 05:10 [place] # (Auto) 0.4 x10^3/uL (0.3-0.8) 09/02/24 05:10 Eos # (Auto) 0.2 x10^3/uL (0.0-0.2) 09/02/24 05:10 Baso # (Auto) 0.1 X10^3/uL (0.0-0.1) 09/02/24 05:10 Absolute Nucleated RBC 0.0 /100WBC 09/02/24 05:10 Total Counted 100 08/28/24 12:47 Neutrophils % (Manual) 82 % (39-76) H 08/28/24 12:47 Band Neutrophils % 10 % (0-10) 08/28/24 12:47 Lymphocytes % (Manual) 6 % (13-43) L 08/28/24 12:47 Monocytes % (Manual) 2 % (4-9) L 08/28/24 12:47 Plt Morphology Comment Normal (NORMAL) 08/28/24 12:47 RBC Morphology Normal (NORMAL) 08/28/24 12:47 Sodium 139 mmol/L (136-145) 09/02/24 05:10 Corrected Sodium TNP 09/02/24 05:10 Potassium 4.0 mmol/L (3.5-5.1) 09/02/24 05:10 Chloride 105 mmol/L (98-107) 09/02/24 05:10 Carbon Dioxide 27.3 mmol/L (21-32) 09/02/24 05:10 BUN 8 mg/dL (7-18) 09/02/24 05:10 Creatinine 1.03 mg/dL (0.55-1.02) H 09/02/24 05:10 Est GFR (MDRD) Af Amer > 60 (>60) 09/02/24 05:10 Est GFR (MDRD) Non-Af 57 (>60) L 09/02/24 05:10 Glucose 88 mg/dL (65-99) 09/02/24 05:10 Lactic Acid 0.8 mmol/L (0.4-2.0) 08/28/24 18:20 Calcium 8.7 mg/dL (8.5-10.1) 09/02/24 05:10 Corrected Calcium 9.9 mg/dL (8.5-10.1) 09/02/24 05:10 Magnesium 2.0 mg/dL (2.0-2.9) 09/01/24 05:51 Total Bilirubin 0.50 mg/dL (0.2-1.0) 09/02/24 05:10 AST 27 Units/L (15-37) 09/02/24 05:10 ALT 48 Units/L (12-78) 09/02/24 05:10 Alkaline Phosphatase 137 Units/L (46-116) H 09/02/24 05:10 Total Protein 6.6 g/dL (6.4-8.2) 09/02/24 05:10 Albumin 2.5 g/dL (3.4-5.0) L 09/02/24 05:10 Globulin 4.1 g/dL (2.5-4.5) 09/02/24 05:10 Albumin/Globulin Ratio 0.6 Ratio (1.1-2.1) L 09/02/24 05:10 Amylase 56 Units/L (25-115) 09/02/24 05:10 Lipase 100 Units/L (16-77) H 09/02/24 05:10 Specimen Type Clean catch urine 08/28/24 12:56 Urine Color Whiteside (YELLOW) 08/28/24 12:56 Urine Appearance Hazy (CLEAR) 08/28/24 12:56 Urine pH 6.0 (5.0 - 8.0) 08/28/24 12:56 Ur Specific [place] 1.015 (1.000-1.030) 08/28/24 12:56 Urine Protein 2+ (NEGATIVE) 08/28/24 12:56 Urine Glucose (UA) Negative (NEGATIVE) 08/28/24 12:56 Urine Ketones Negative (NEGATIVE) 08/28/24 12:56 Urine Blood 2+ (NEGATIVE) 08/28/24 12:56 Urine Nitrite Negative (NEGATIVE) 08/28/24 12:56 Urine Bilirubin 2+ (NEGATIVE) 08/28/24 12:56 Urine Urobilinogen 3+ (NORMAL) 08/28/24 12:56 Ur Leukocyte Esterase 1+ (NEGATIVE) 08/28/24 12:56 Urine RBC 3-5 /HPF (0-3) A 08/28/24 12:56 Urine WBC 0-2 /HPF (0-5) 08/28/24 12:56 Ur Squamous Epith Cells Rare /HPF (NEGATIVE) 08/28/24 12:56 Urine Bacteria Trace /HPF (NEGATIVE) 08/28/24 12:56 Urine Mucus Rare /HPF (NEGATIVE) 08/28/24 12:56 Ur Culture Indicated? No/not indicated 08/28/24 12:56 Reason For Visit: ACUTE PANCREATITIS, SBD PAIN, N/V, WEAKNESS Discharge Diagnosis All Active Problems (Updated 08/31/24 @ 10:55 by Job Hameed MD) E coli bacteremia (Acute) Cholelithiases (Acute) Abdominal pain of multiple sites (Acute) SAVANNA (acute kidney injury) (Acute) Positive blood culture (Acute) Acute pancreatitis (Acute) Abdominal pain (Acute) Leucocytosis (Acute) Gall stone (Acute) Dehydration (Acute) Nausea & vomiting (Acute) Weakness (Acute) E. coli UTI (urinary tract infection) (Acute) Medicare annual wellness visit, initial (Acute) Low density lipoprotein (LDL) cholesterol level less than 100 mg/dL (Acute) Essential hypertension with goal blood pressure less than 130/85 (Chronic) Encounter to establish care (Acute) Screening for diabetes mellitus (Acute) Right hip pain (Acute) Dyslipidemia (Chronic) Hypertension (Chronic) History of TIA (transient ischemic attack) (Chronic) Intractable pain (Acute) Plan of Treatment: Continue with present treatment and follow up plan. Pt is to keep follow up appointment as instructed and take medications as ordered. Discharge Medications Discharge Medications: No Known Drug Allergies Allergy (Unknown, Verified 08/28/24 11:41) New Prescriptions levofloxacin 500 mg tablet 500 mg PO QDAY 10 days #10 tabs 09/02/24 [Rx] lisinopril 10 mg tablet 10 mg PO BID High blood pressure and renal protection 90 days #90 tabs 09/02/24 [Rx] Discharge Disposition Discharge Disposition: home Discharge Condition: stable Discharge Plan Discharge Plan Hospital Course: Ms Terry is a 64y/o female with a PMH of HTN, HLD and anxiety presented with N/V and worsening abdominal pain for the past 2 weeks. She states she was initially getting better and then started feeling worse again so came to the ER. Work up showed elevated LFTs, lipase and amylase. WBC and Creatinine was also elevated. CTAP showed acute pancreatitis and gallstones vs sludge. Patient was started on fluids, pain control and ant-emetics. She was kept NPO and admitted for further management. This morning, she is feeling better. Denies use of ETOH. Her labs were monitored daily and electrolytes replaced as needed. GB US showed cholelithiasis with nondistended gallbladder and nonspecific thickening. Dr Allen was consulted and recommended cholecystectomy. Patient's one set of initial blood cx was positive for E.coli. She was on IV antibiotics. She had lap c holecystectomy with no complications. She was doing well, tolerating PO intake. Her pain was well-controlled. Repeat blood Cx were negative. She had elevated BP, lisinopril was increased to BID. She was told to monitor BP daily and discuss with PCP. She was stable to be discharged home on PO abx. She will f/u with PCP and Dr Allen as scheduled. Patient Disposition: 01 HOME, SELF-CARE Condition: Stable Health Concerns: Post Hospitalization: new medications and changes needed to prevent readmission or further decline. Pt educated and given instructions on all concerns. Care Plan Goals: Problem: Pain/Alteration in Comfort Goal: Improve/ Resolve Pain; Achieve Pain Tolerance Instructions: Take pain medications as prescribed. Contact your primary care provider if your pain is unrelieved or worsens. Follow up with primary care provider as directed. Plan of Treatment: Continue with present treatment and follow up plan. Pt is to keep follow up appointment as instructed and take medications as ordered. Prescription drug monitoring program results: PDMP reviewed and no concerns identified Prescriptions: New levofloxacin 500 mg tablet 500 mg PO QDAY 10 Days Qty: 10 0RF Continued aspirin [Adult Low Dose Aspirin] 81 mg tablet,delayed release (DR/EC) 81 mg PO QDAY MDD 1 30 Days Qty: 30 0RF Rx Instructions: Samples shared of 1 bottle by 31 tablets given to the patient to continue use. simvastatin 20 mg tablet 20 mg PO QHS MDD 1 30 Days Qty: 30 2RF Changed lisinopril 10 mg tablet 10 mg PO BID MDD 1 90 Days Qty: 90 1RF Orders to Discharge Patient Discharge Orders: Discharge (Routine); Ordered 09/02/24 Ordered By: IRENE MIR Follow ups/Referrals Follow ups/Referrals: IRENE MIR [STAFF PHYSICIAN] - 1 WEEK BRET BARRIOS FNP [Primary Care Provider] - 3 days Instructions Instructions: Laparoscopic Cholecystectomy, Care After, Acute Pancreatitis, [id number], Laparoscopic Cholecystectomy, Pancreatitis Eating Plan, Cholelithiasis, [id number], Nausea and Vomiting, Adult, [id number] Activity Restrictions/Additional Instructions: LIGHT ACTIVITY, LOW FAT DIET , CALL MD OR COME TO ER IF ANY ISSUES OR CONCERNS, FLU WITH ZAID GOLDBERG IN 10 DAYS - TAKE LISINOPRIL 10 MG TWICE A DAY FOR BLOOD PRESSURE, MONITOR BP DAILY. Stand Alone Forms: Find Help Web Site, Post Hospital Follow Up Care
== END 2024-09-02 11:30 | disposition home or self-care (01) ==
LOC: ER 11:36 → MED/SURG 11:36
PROVIDERS: ADMIT Family Medicine; ATTEND Family Medicine
DX: Z72.0 Tobacco use; K85.80 Other acute pancreatitis without necrosis or infection; Z86.73 Personal history of transient ischemic attack (TIA), and cerebral infarction without residual deficits; R78.81 Bacteremia; B96.29 Other Escherichia coli [E. coli] as the cause of diseases classified elsewhere; Z16.29 Resistance to other single specified antibiotic; K80.00 Calculus of gallbladder with acute cholecystitis without obstruction; N17.8 Other acute kidney failure; R11.2 Nausea with vomiting, unspecified; E86.0 Dehydration; E87.1 Hypo-osmolality and hyponatremia; I10 Essential (primary) hypertension; R94.5 Abnormal results of liver function studies; E78.5 Hyperlipidemia, unspecified; Z01.810 Encounter for preprocedural cardiovascular examination; E83.42 Hypomagnesemia; F41.8 Other specified anxiety disorders; Z16.23 Resistance to quinolones and fluoroquinolones; R10.84 Generalized abdominal pain